=== PATIENT | female | born 1960 | race Caucasian/White ===

== ENCOUNTER → 2016-12-15 | Outpatient (CLI) | payer MEDICARE ==
[~2016-12-15] MED LIST: AVALIDE PO; AVANDIA PO; CRESTOR PO; HALDOL INJ; JANUMET; LIPITOR PO; METFORMIN PO; UNKNOWN BP MED; [UNRECOGNIZED DRUG - OTHER]
--- NOTE | ~2016-12-15 | CT2 ---
[facility] A Service of [facility] & [facility] RADIOLOGY TEXT RESULTS PATIENT: THUY ART [facility] 64 UNIT #: [id number] AGE: [address]: Naveed Henao MD SEX: F ORDER DR: [id number] [facility] [address] [place], [place] [address] [id number] O MR#: [id number] [facility] #: [id number] NAME: THUY ART : 1960 SEX: F STUDY DATE/TIME: 12/15/2016 13:58 [facility]: STUDY DESCRIPTION: CT Abd and Pelv W Cont Attending Physician: Naveed Henao M.D. Referring Physician: Naveed Henao M.D. Ordering Physician: Naveed Henao M.D. Primary Care Physician: Jesus Daniel, [facility] MEDICAL IMAGING REPORT This report is preliminary unless electronic signature is present EXAM Abdomen and pelvis CT with contrast, 12/15/2016 INDICATIONS 56-year-old female with loss of appetite for 3 months, gastritis. Diarrhea intermittently for 3 months. Abdominal pain, generally. No history of malignancy. Prior . TECHNIQUE Contrast-enhanced abdomen and pelvis CT was performed and compared with 10/14/2006. This CT exam was performed with one or more of the following radiation dose reduction techniques: Automatic exposure control, adjustment of mA and/or kV according to patient size, and iterative reconstruction. FINDINGS CT ABDOMEN: Included lung bases are clear. Aorta demonstrates no aneurysm or dissection. The spleen and right adrenal gland are unremarkable. The left adrenal gland demonstrates probable interval development of hyperplasia. No well-defined adrenal nodule identified. Correlate with laboratory data. Pancreas and gallbladder unremarkable. There is fatty infiltration of the liver. The liver is enlarged measuring 22.6 cm, long axis. The kidneys are unremarkable. No adenopathy or fluid collection. CT PELVIS: Bladder unremarkable for degree of distension. There is no free fluid or drainable fluid collection in the pelvis. No evidence of adnexal mass. No bowel obstruction or focal inflammatory change of the bowel, and the appendix is normal. Inguinal canals are normal. There is no suspicious bone lesion. IMPRESSION 1. No clearly acute process in the abdomen or pelvis. No bowel STS. [facility] A Service of [facility] RADIOLOGY TEXT RESULTS PATIENT: THUY ART LOCATION: [facility] : 64 UNIT #: [id number] AGE: [address]: Naveed Henao MD SEX: F ORDER DR: obstruction, drainable fluid collection or focal area of inflammatory change. The appendix is normal. 2. Fatty infiltration of the liver and hepatomegaly. The hepatomegaly is likely chronic when compared to the prior [address] CT. 3. Interval enlargement of the left adrenal gland in a diffuse fashion, suggestive of adrenal hyperplasia. Laboratory data would be complementary in this regard. Dictated by... Jose Ramon Menendez M.D. THIS IS AN ELECTRONICALLY VERIFIED REPORT Jose Ramon Menednez M.D. at 12/16/2016 7:14 AM ERIK/nilam TD: 12/15/2016 23:58 JOB #: [id number] MEDICAL IMAGING REPORT Page 1 of 1 COPY
[2016-12-15 17:01] LABS: POC - CREATININE 0.75 mg/dL (0.44-1.03); POC - GFR >60.0 mL/min (>60)
== END | disposition home or self-care (01) ==
LOC: CCAT 12:22
PROVIDERS: Family Medicine
DX: K29.70 Gastritis, unspecified, without bleeding (principal); K76.0 Fatty (change of) liver, not elsewhere classified; E27.8 Other specified disorders of adrenal gland
CPT/HCPCS: 74177; 82565; Q9967